=== PATIENT | male | born 1965 | race African-American/Black ===

== ENCOUNTER 2019-07-19 17:36 | Emergency (ER) | payer OTHER ==
[~2019-07-19] VITALS: Ht 177.8 cm; Wt 83.0 kg
[2019-07-19 18:21] VITALS: BP 138/92
[2019-07-19] MEDS ORDERED: IBUPROFEN 200 MG TABLET. PO ONE (18:45)
[2019-07-19] MEDS ORDERED: ORPH100T PO (18:45)
[2019-07-19] MEDS ORDERED: ONDA4TAB12 PO (18:45)
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
[2019-07-19] MEDS ORDERED: ONDANSETRON ODT 4 MG TAB.RAPDIS. PO ONE (19:00)
== END 2019-07-19 18:59 | disposition home or self-care (01) ==
LOC: ER 17:36
DX: S16.1XXA Strain of muscle, fascia and tendon at neck level, initial encounter (principal); R11.0 Nausea; R51 Headache; V49.49XA Driver injured in collision with other motor vehicles in traffic accident, initial encounter; Y93.89 Activity, other specified; Y92.488 Other paved roadways as the place of occurrence of the external cause; Y99.8 Other external cause status
CPT/HCPCS: 99283; Q0162